=== PATIENT | female | born 1985 | race African-American/Black ===

== ENCOUNTER 2016-09-05 21:57 | Emergency (ER) | payer SELFPAY ==
[~2016-09-05] VITALS: Ht 172.7 cm; Wt 63.0 kg
[2016-09-05 22:13] VITALS: BP 130/60
== END 2016-09-06 00:01 | disposition left against medical advice (07) ==
LOC: ER 22:11
DX: H57.11 Ocular pain, right eye (principal); Z53.21 Procedure and treatment not carried out due to patient leaving prior to being seen by health care provider